=== PATIENT | female | born 1985 ===

== ENCOUNTER 2022-01-11 10:28 | Outpatient (CLI) | payer OTHER | END 2022-01-11 12:45 | disposition home or self-care (01) | LOC: PRENATAL 10:28 | PROVIDERS: ATTEND Obstetrics & Gynecology Maternal & Fetal Medicine | DX: O36.80X0 Pregnancy with inconclusive fetal viability, not applicable or unspecified (principal); Z36 Encounter for antenatal screening of mother; O24.419 Gestational diabetes mellitus in pregnancy, unspecified control; Z3A.14 14 weeks gestation of pregnancy ==

== ENCOUNTER 2022-04-19 14:02 | Outpatient (CLI) | payer OTHER | END 2022-04-19 14:54 | disposition home or self-care (01) | LOC: PRENATAL 14:02 | PROVIDERS: ATTEND Obstetrics & Gynecology Maternal & Fetal Medicine | DX: O26.849 Uterine size-date discrepancy, unspecified trimester (principal); O09.519 Supervision of elderly primigravida, unspecified trimester; O24.419 Gestational diabetes mellitus in pregnancy, unspecified control; Z3A.28 28 weeks gestation of pregnancy ==

== ENCOUNTER 2022-05-31 14:14 | Outpatient (CLI) | payer OTHER | END 2022-05-31 15:15 | disposition home or self-care (01) | LOC: PRENATAL 14:14 | PROVIDERS: ATTEND Obstetrics & Gynecology Maternal & Fetal Medicine | DX: O26.849 Uterine size-date discrepancy, unspecified trimester (principal); O24.419 Gestational diabetes mellitus in pregnancy, unspecified control; O99.210 Obesity complicating pregnancy, unspecified trimester; Z3A.34 34 weeks gestation of pregnancy ==

== ENCOUNTER 2022-06-28 17:36 | Inpatient (IN) | payer OTHER ==
[~2022-06-28] VITALS: Ht 154.9 cm; Wt 3.2 kg
[2022-07-02] MEDS ORDERED: COLACE100 MG PO (13:29)
[2022-07-02] MEDS ORDERED: SIMETHICONE80 MG PO (13:29)
[2022-07-02] MEDS ORDERED: IBU800 MG PO (13:29)
[2022-07-02] MEDS ORDERED: PERCOCET 5-3251 EACH PO (13:29)
== END 2022-07-02 15:33 | disposition home or self-care (01) | DRG 788 ==
LOC: O/R 17:36 → OB/GYN 17:36 → LDR 17:36 → O/R 06-29 19:56 → OB/GYN 06-29 21:28
PROVIDERS: Obstetrics & Gynecology; ADMIT Student in an Organized Health Care Education/Training Program; ATTEND Student in an Organized Health Care Education/Training Program
PROC: 4A1HXCZ Monitoring of Products of Conception, Cardiac Rate, External Approach (ICD-10-PCS; 2022-06-28)
PROC: 3E0P7VZ Introduction of Hormone into Female Reproductive, Via Natural or Artificial Opening (ICD-10-PCS; 2022-06-28)
PROC: 3E0DXGC Introduction of Other Therapeutic Substance into Mouth and Pharynx, External Approach (ICD-10-PCS; 2022-06-29)
PROC: 10D00Z1 Extraction of Products of Conception, Low, Open Approach (ICD-10-PCS; principal; 2022-06-29 21:00)
DX: O62.1 Secondary uterine inertia (principal); Z3A.38 38 weeks gestation of pregnancy; Z37.0 Single live birth; Z20.822 Contact with and (suspected) exposure to COVID-19